=== PATIENT | female | born 1990 | race Caucasian/White ===

== ENCOUNTER 2018-03-18 12:45 | Emergency (ER) | payer OTHER ==
[~2018-03-18] VITALS: Ht 162.6 cm; Wt 81.6 kg
[2018-03-18] MEDS ORDERED: NAPR500T14 PO (14:57)
== END 2018-03-18 15:15 | disposition home or self-care (01) ==
LOC: ER 12:45
DX: M25.532 Pain in left wrist (principal); M25.531 Pain in right wrist